=== PATIENT | female | born 1950 | race Caucasian/White ===

== ENCOUNTER → 2016-07-29 | Outpatient (CLI) | payer MEDICARE ==
[~2016-07-29] MED LIST: DENOSUMAB 60 MG/ML 1 ML SYRINGE SQ NR
[2016-07-29 11:04] VITALS: BP 159/73; PULSE 85; RESP 16; TEMP 98.2
== END ==
LOC: PROCWHC3 10:32
PROVIDERS: ATTEND Family Medicine
DX: M81.0 Age-related osteoporosis without current pathological fracture (principal)
CPT/HCPCS: 96372

== ENCOUNTER → 2017-01-30 | Outpatient (CLI) | payer MEDICARE ==
--- NOTE | 2017-02-03 09:59 | MM ---
Reason for exam: screening (asymptomatic). Last mammogram was performed 1 year ago. History: Patient is postmenopausal. Family history of breast cancer in maternal aunt at age 72 and breast cancer in mother at age 72. Benign US left CoreBiopsy of the left breast, May 31, 2005. Benign excisional biopsy of the left breast, 1996. Took estrogen for 10 years beginning at age 50. Took progesterone for 10 years beginning at age 50. Physical Findings: A clinical breast exam by your physician is recommended on an annual basis and results should be correlated with mammographic findings. MG 3D Screening Mammo W/Cad Bilateral CC and MLO view(s) were taken. Prior study comparison: January 22, 2016, bilateral MG 3d diag mammo w/cad [facility]. January 16, 2015, bilateral MG 3d diag mammo w/cad [facility]. The breast tissue is heterogeneously dense. This may lower the sensitivity of mammography. No significant changes when compared with prior studies. ASSESSMENT: Benign, BI-RAD 2 RECOMMENDATION: Routine screening mammogram of both breasts in 1 year.
== END | disposition home or self-care (01) ==
LOC: RADMAMWWP 14:35
PROVIDERS: ATTEND Family Medicine
DX: Z12.31 Encounter for screening mammogram for malignant neoplasm of breast (principal)
CPT/HCPCS: 77063; G0202

== ENCOUNTER → 2017-05-20 | Outpatient (CLI) | payer MEDICARE ==
--- NOTE | 2017-05-20 12:29 | ECHOS ---
STRESS ECHOCARDIOGRAM INDICATIONS: Shortness of breath BASELINE HEART RATE: 74 BASELINE BLOOD PRESSURE: 132/63 MAXIMUM HEART RATE: 145 MAXIMUM BLOOD PRESSURE: 204/74 85% MPHR: 130 100% MPHR: 153 METS: 6.4 MAXIMUM STAGE REACHED: 2 TOTAL EXERCISE TIME: 4:30 CLINICAL INFORMATION: Please see my dictation on the exercise portion of the stress echo. The stress echo images were suboptimal and the was used. Followup at peak exercise, the overall LV systolic function remained normal, but the images were non-gated on account of loss of the wireless EKG. Therefore, gated images were not obtained for comparison. At recovery, regional global LV systolic function remained normal. IMPRESSION: 1. No ECG evidence for ischemia. 2. No obvious echocardiographic evidence for ischemia at peak exercise or recovery. 3. The images could not be gated on account of loss of the wireless signal in the EKG wireless signal. MMODL / IJN: [id number] /
--- NOTE | 2017-05-21 09:15 | EST ---
EXERCISE STRESS DATE OF SURGERY: 05/20/17 AGE: 67 SEX: Female HT: 5 feet 1 inches WT: 124 pounds PROTOCOL: Stress echo STAGE: II DURATION OF EXERCISE: 4:30 minutes HEART RATE REST: 74 BLOOD PRESSURE REST: 132/63 MAXIMUM HEART RATE ACHIEVED: 145 MAXIMUM BLOOD PRESSURE: 204/74 85% MPHR: 130 100% MPHR: 153 METS: 6.4 INDICATIONS: Shortness of breath. CLINICAL INFORMATION: The patient was referred by Dr. Henriquez for evaluation of shortness of breath. RESULTS: Baseline heart rate 74 beats per minute. Baseline blood pressure 132/63 mmHg. Baseline 12-lead ECG shows normal sinus rhythm with normal cardiac intervals. Patient exercised on See protocol for 4 minutes 30 seconds achieving a peak heart rate of 145 beats per minute. Hypertensive response to exercise. There was no ECG evidence for ischemia. No arrhythmias noted. IMPRESSION: Low exercise capacity on See protocol. Hypertensive response to exercise. No ECG evidence of ischemia or arrhythmias at this low workload. MMODL / IJN: [id number] /
== END | disposition home or self-care (01) ==
LOC: RADNMMAIN 09:24
PROVIDERS: ATTEND Family Medicine
DX: R06.02 Shortness of breath (principal)
CPT/HCPCS: 93017; C8928; Q9950; 93350

== ENCOUNTER → 2017-08-18 | Outpatient (CLI) | payer MEDICARE ==
[~2017-08-18] MED LIST changes: -DENOSUMAB 60 MG/ML 1 ML SYRINGE SQ NR; +DENOSUMAB 60 MG/ML 1 ML SYRINGE SQ ONE
[2017-08-18 11:42] VITALS: BP 157/90; PULSE 85; RESP 15; TEMP 98.1
== END | disposition home or self-care (01) ==
LOC: PROCWHC3 11:22
PROVIDERS: ATTEND Family Medicine
DX: M81.0 Age-related osteoporosis without current pathological fracture (principal)
CPT/HCPCS: 96372; J0897

== ENCOUNTER → 2017-11-07 | Outpatient (CLI) | payer MEDICARE ==
[2017-11-07 11:40] LABS: Basophils % (A) 1 %; Eosinophils # (A) 0.1 k/uL (0-0.7); Eosinophils % (A) 2 %; HCT 42.5 % (34.0-46.0); HGB 13.6 gm/dL (11.4-16.0); Lymphocytes # (A) 1.3 k/uL (1.0-4.8); Lymphocytes % (A) 32 %; MCH 30.5 pg (25.0-35.0); MCHC 32.1 g/dL (31.0-37.0); MCV 94.9 fL (80.0-100.0); Mean Platelet Volume 7.8; Monocytes # (A) 0.2 k/uL (0-1.0); Monocytes % (A) 5 %; Neutrophils # (A) 2.3 k/uL (1.3-7.7); Neutrophils % (A) 59 %; Platelet Count 266 k/uL (150-450); RBC 4.47 m/uL (3.80-5.40); RDW 12.7 % (11.5-15.5)
[2017-11-07 12:09] LABS: ALT 21 U/L (9-52); AST 31 U/L (14-36); Albumin 4.7 g/dL (3.5-5.0); Alkaline Phosphatase 70 U/L (38-126); Anion Gap 9 mmol/L; Blood Urea Nitrogen 14 mg/dL (7-17); Calcium 10.2 mg/dL (8.4-10.2); Carbon Dioxide 27 mmol/L (22-30); Chloride 107 mmol/L (98-107); Cholesterol 220 mg/dL (<200); Creatine Kinase 49 U/L (30-135); Glucose 103 mg/dL (74-99); HDL Cholesterol 100 mg/dL (40-60); LDL Cholesterol,Calculated 101 mg/dL (0-99); Potassium 4.3 mmol/L (3.5-5.1); Sodium 143 mmol/L (137-145); Total Bilirubin 0.6 mg/dL (0.2-1.3); Total Protein 7.9 g/dL (6.3-8.2); Triglycerides 96 mg/dL (<150)
[2017-11-07 18:39] LABS: Hemoglobin A1C 5.4 % (4.0-6.0)
[2017-11-07 19:18] LABS: DHEA Sulfate 81.3 ug/dL (26.0-430.0)
[2017-11-07 19:25] LABS: Progesterone <0.2 ng/mL
== END | disposition home or self-care (01) ==
LOC: LABWHC1 10:35
PROVIDERS: ATTEND Surgery
DX: E78.5 Hyperlipidemia, unspecified (principal); G47.00 Insomnia, unspecified; R53.81 Other malaise; E34.9 Endocrine disorder, unspecified; R61 Generalized hyperhidrosis; N95.2 Postmenopausal atrophic vaginitis
CPT/HCPCS: 36415; 80053; 80061; 82550; 82627; 82670; 83001; 83036; 84140; 84144; 84403; 84443; 84481; 85025

== ENCOUNTER → 2017-12-16 | Outpatient (CLI) | payer MEDICARE ==
[2017-12-16 17:10] LABS: Progesterone 10.2 ng/mL
== END ==
LOC: LABWHC1 10:52
PROVIDERS: ATTEND Surgery
DX: E34.9 Endocrine disorder, unspecified (principal); N95.2 Postmenopausal atrophic vaginitis; G47.00 Insomnia, unspecified; R53.81 Other malaise; R68.82 Decreased libido; R61 Generalized hyperhidrosis; Z51.81 Encounter for therapeutic drug level monitoring
CPT/HCPCS: 36415; 82670; 84140; 84144; 84403

== ENCOUNTER → 2018-07-15 | Outpatient (CLI) | payer MEDICARE ==
--- NOTE | 2018-07-17 10:08 | MM ---
Reason for exam: screening (asymptomatic). Last mammogram was performed 1 year and 5 months ago. History: Patient is postmenopausal. Family history of breast cancer in maternal aunt at age 72 and breast cancer in mother at age 72. Benign US left CoreBiopsy of the left breast, May 31, 2005. Benign excisional biopsy of the left breast, 1996. Took estrogen for 10 years beginning at age 50. Took progesterone for 10 years beginning at age 50. Physical Findings: A clinical breast exam by your physician is recommended on an annual basis and results should be correlated with mammographic findings. MG 3D Screening Mammo W/Cad Bilateral CC and MLO view(s) were taken. Prior study comparison: January 30, 2017, bilateral MG 3d screening mammo w/cad. January 22, 2016, bilateral MG 3d diag mammo w/cad [facility]. The breast tissue is heterogeneously dense. This may lower the sensitivity of mammography. No significant changes when compared with prior studies. ASSESSMENT: Benign, BI-RAD 2 RECOMMENDATION: Routine screening mammogram of both breasts in 1 year.
== END | disposition home or self-care (01) ==
LOC: RADMAMWWP 16:46
PROVIDERS: ATTEND Family Medicine
DX: Z12.31 Encounter for screening mammogram for malignant neoplasm of breast (principal)
CPT/HCPCS: 77063; 77067

== ENCOUNTER → 2018-08-24 | Outpatient (CLI) | payer MEDICARE ==
[2018-08-24 10:53] VITALS: BP 171/97; PULSE 90; RESP 18; TEMP 98
== END ==
LOC: PROCWHC3 10:36
PROVIDERS: ATTEND Family Medicine
DX: M81.0 Age-related osteoporosis without current pathological fracture (principal)
CPT/HCPCS: 96372; J0897

== ENCOUNTER → 2019-08-25 | Outpatient (CLI) | payer MEDICARE ==
[~2019-08-25] MED LIST changes: +DENOSUMAB 60 MG/ML 1 ML SYRINGE SQ NR; -DENOSUMAB 60 MG/ML 1 ML SYRINGE SQ ONE
[2019-08-27 09:32] VITALS: BP 152/81; PULSE 72; RESP 16; TEMP 97.9
== END | disposition home or self-care (01) ==
LOC: PROCWHC3 14:36
PROVIDERS: ATTEND Family Medicine
DX: M81.0 Age-related osteoporosis without current pathological fracture (principal)
CPT/HCPCS: 96372; J0897

== ENCOUNTER → 2019-11-03 | Outpatient (CLI) | payer MEDICARE ==
--- NOTE | 2019-11-03 13:42 | US ---
EXAMINATION TYPE: US abdomen complete DATE OF EXAM: 11/03/2019 COMPARISON: NONE CLINICAL HISTORY: R11.10 Vomiting. EXAM MEASUREMENTS: Liver Length: 13.4 cm Gallbladder Wall: 0.2 cm CBD: 0.4 cm Spleen: 7.5 cm Right Kidney: 8.7 x 3.5 x 3.7 cm Left Kidney: 8.4 x 4.0 x 3.4 cm Pancreas: Obscured by bowel gas Liver: Heterogeneous Gallbladder: wnl Evidence for sonographic Wolff's sign: No CBD: wnl Spleen: Prominent hyperechoic area visualized measuring 1.4 x 0.7 x 0.8 cm Right Kidney: No hydronephrosis or masses seen. Measuring small, but symmetric Left Kidney: No hydronephrosis or masses seen. Measuring small, but symmetric Upper IVC: wnl Abd Aorta: wnl IMPRESSION: 1. Mild fatty infiltration liver. 2. Small hyperechoic area within the tip of the spleen consider hemangioma. Additional evaluation wit h CT could be performed.
== END | disposition home or self-care (01) ==
LOC: RADUSWWP 10:08
PROVIDERS: ATTEND Nurse Practitioner Adult Health
DX: K76.0 Fatty (change of) liver, not elsewhere classified (principal)
CPT/HCPCS: 76700

== ENCOUNTER → 2019-11-22 | Outpatient (CLI) | payer MEDICARE ==
--- NOTE | 2019-11-22 10:01 | CT ---
EXAMINATION TYPE: CT abdomen wo con DATE OF EXAM: 11/22/2019 COMPARISON: Ultrasound 11/03/2019 HISTORY: Hemangioma of Intra-abdominal structures CT DLP: 157.7 mGycm Automated exposure control for dose reduction was used. TECHNIQUE: Helical acquisition of images was performed from the lung bases through the top of iliac crest to include entire abdomen. CONTRAST: Performed without Oral Contrast and without IV contrast. FINDINGS: LUNG BASES: No significant abnormality is appreciated. LIVER/GB: There is a hypodensity measuring 8 mm within the dome of the liver too small to characteriz e. The splenic lesion is not seen with certainty which likely is related to the lack of IV contrast a dministration PANCREAS: Atrophic change of the pancreas. SPLEEN: No significant abnormality is seen. ADRENALS: No significant abnormality is seen. KIDNEYS: No significant abnormality is seen. Aorta of normal caliber. BOWEL: Small hiatal hernia. Bowel gas pattern nonspecific.. LYMPH NODES: No significant abnormality is appreciated. OSSEOUS STRUCTURES: Hypertrophic and degenerative changes spine with facet arthropathy and grade 1 a nterolisthesis L4-L5.. OTHER: Aorta of normal caliber. IMPRESSION: 1. The sonographic findings are not seen with certainty on this study which may be related to lack of contrast. Consider follow-up CT scan with contrast. 2. There is a 8 mm hypodensity within the dome of the liver too small to characterize and not identif ied by ultrasound. Follow-up CT scan could be obtained in a short-term basis. 3. Hiatal hernia.
== END | disposition home or self-care (01) ==
LOC: RADCTMAIN 08:37
PROVIDERS: ATTEND Family Medicine
DX: K44.9 Diaphragmatic hernia without obstruction or gangrene (principal); R93.2 Abnormal findings on diagnostic imaging of liver and biliary tract
CPT/HCPCS: 74150

== ENCOUNTER → 2020-09-18 | Outpatient (CLI) | payer MEDICARE ==
--- NOTE | 2020-09-19 10:31 | MM ---
Reason for exam: screening (asymptomatic). Last mammogram was performed 1 year ago. History: Patient is postmenopausal. Family history of breast cancer in maternal aunt at age 72 and breast cancer in mother at age 72. Benign US left CoreBiopsy of the left breast, May 31, 2005. Benign excisional biopsy of the left breast, 1996. Took estrogen for 10 years beginning at age 50. Took progesterone for 10 years beginning at age 50. Physical Findings: A clinical breast exam by your physician is recommended on an annual basis and results should be correlated with mammographic findings. MG 3D Screening Mammo W/Cad Bilateral CC and MLO view(s) were taken. Prior study comparison: September 15, 2019, bilateral MG 3d screening mammo w/cad. July 15, 2018, bilateral MG 3d screening mammo w/cad. The breast tissue is heterogeneously dense. This may lower the sensitivity of mammography. Finding #1: Stable architectural distortion in the left breast. Finding #2: There are typically benign vascular, round calcifications. There is no discrete abnormality. ASSESSMENT: Benign, BI-RAD 2 RECOMMENDATION: Routine screening mammogram of both breasts in 1 year.
== END | disposition home or self-care (01) ==
LOC: RADMAMWWP 07:47
PROVIDERS: ATTEND Family Medicine
DX: Z12.31 Encounter for screening mammogram for malignant neoplasm of breast (principal)
CPT/HCPCS: 77063; 77067

== ENCOUNTER → 2021-09-19 | Outpatient (CLI) | payer MEDICARE ==
--- NOTE | 2021-09-20 08:44 | MM ---
Reason for Exam: Screening (asymptomatic). Last screening mammogram was performed 12 month(s) ago. Patient History: Menarche at age 15. First Full-Term at age 20. Postmenopausal. Estrogen, starting at age 50 for 10 years. Progesterone, starting at age 50 for 10 years. 1996, Benign Excisional Biopsy on the left side. 05/31/2005, Benign Core Biopsy on the left side. Maternal aunt had breast cancer, age 72. Mother had breast cancer, age 72. Risk Values: Maritza 5 year model risk: 4.5%. NCI Lifetime model risk: 12.2%. Prior Study Comparison: 07/15/2018 Bilateral Screening Mammogram, [facility]. 09/15/2019 Bilateral Screening Mammogram, [facility]. 09/18/2020 Bilateral Screening Mammogram, [facility]. Tissue Density: The breast tissue is heterogeneously dense. This may lower the sensitivity of mammography. Findings: Analyzed By CAD. There is no suspicious group of microcalcifications or new suspicious mass in either breast. Stable benign-appearing calcifications within both breasts. No significant change from prior examinations. Overall Assessment: Benign, BI-RAD 2 Management: Screening Mammogram of both breasts in 1 year. A clinical breast exam by your physician is recommended on an annual basis and results should be correlated with mammographic findings. Electronically signed and approved by: Paul Mosqueda D.O.
== END | disposition home or self-care (01) ==
LOC: RADMAMWWP 12:35
PROVIDERS: ATTEND Family Medicine
DX: Z12.31 Encounter for screening mammogram for malignant neoplasm of breast (principal)
CPT/HCPCS: 77063; 77067